=== PATIENT | female | born 1980 | race Caucasian/White ===

== ENCOUNTER 2020-12-05 21:14 | Emergency (ER) | payer OTHER ==
[~2020-12-05] VITALS: Ht 165.1 cm; Wt 50.0 kg
[2020-12-05] MEDS ORDERED: methylPREDNISolone 40 MG/ML (Solu-MEDROL) VIAL IV ONE (21:30)
[2020-12-05] MEDS ORDERED: EPINEPHrine INJECTION 1 MG/ML AMP IM ONE (21:30)
[2020-12-05] MEDS ORDERED: FAMOTIDINE 20MG/2ML IV (PEPCID) IVP ONE (21:30)
--- NOTE | 2020-12-05 21:56 | ED General ---
General Stated Complaint: HIVES,CP, STUNG BY WASP Source of Information: Patient Exam Limitations: No Limitations History of Present Illness Date Seen by Provider: Dec 05, 2020 Time Seen by Provider: 21:51 Initial Comments To ER with reports of diffuse hives, chest pain. She has a tightness in her chest and throat. No abdominal cramping or diarrhea. No shortness of breath she does however feel like her chest is tight. She was stung by several wasps at about 630 this evening. At about 815 she took 50 mg of Benadryl. She presents now because of failure to improve and concern of anaphylaxis given the skin and respiratory tract involvement. Her mother has a history of wasp induced anaphylaxis. She herself has never had an episode like this before. She is employed as a physician at [employer]. Timing/Duration: 1-2 Days Severity: Moderate Associated Systoms: Denies Symptoms Allergies and Home Medications Allergies Coded Allergies: No Known Drug Allergies (Unverified , 12/05/20) Patient Home Medication List Home Medication List Reviewed: Yes Review of Systems Review of Systems Constitutional: see HPI EENTM: see HPI Respiratory: no symptoms reported Cardiovascular: no symptoms reported Genitourinary: no symptoms reported Musculoskeletal: see HPI Skin: see HPI, pruritus Psychiatric/Neurological: No Symptoms Reported Hematologic/Lymphatic: No Symptoms Reported Physical Exam Vital Signs Capillary Refill : Height, Weight, BMI Height: '" Weight: lbs. oz. kg; BMI Method: General Appearance: No Apparent Distress, WD/WN, Other (No stridor or wheezing. Lungs are clear.) Eyes: Bilateral Eye Normal Inspection, Bilateral Eye PERRL, Bilateral Eye EOMI HEENT: PERRL/EOMI, TMs Normal Neck: Full Range of Motion, Normal Inspection Respiratory: No Accessory Muscle Use, No Respiratory Distress Cardiovascular: Regular Rate, Rhythm, Normal Peripheral Pulses, Other (Heart rate in the 80s sinus no ectopy) Gastrointestinal: Normal Bowel Sounds, Non Tender, Soft Neurologic/Psychiatric: Alert, Oriented x3 Skin: Normal Color, Warm/Dry, Other (Urticarial rash to the torso. Swelling and erythema about the sting site to the left ankle.) Progress/Results/Core Measures Suspected Sepsis SIRS Temperature: Pulse: Respiratory Rate: Blood Pressure / Mean: Results/Orders My Orders Orders - CHANNING ALMENDAREZ APRN Methylprednisolone Sod Succ (Solu-Medrol (12/05/20 21:30) Famotidine Injection (Pepcid Injection) (12/05/20 21:30) Epinephrine 1 Mg Injection (Adrenalin I (12/05/20 21:30) Ed Iv/Invasive Line Start (12/05/20 21:30) Vital Signs/I&O Capillary Refill : Departure Communication (Admissions) 2000-we did go ahead and give 0.3 mg of intramuscular epinephrine in the left deltoid muscle. We also gave 20 mg of IV Pepcid and 80 mg of IV Solu-Medrol. Impression Primary Impression: Anaphylaxis Disposition: HOME, SELF-CARE Condition: Stable Departure-Patient Inst. Decision time for Depature: 21:54 Referrals: [facility] [place] (PCP/Family) Primary Care Physician Patient Instructions: Anaphylaxis, Epinephrine Autoinjectors Scripts Epinephrine (Epipen 2-Rogelio) 0.3 Mg/0.3 Ml Auto.injct 0.3 MG IJ PRN PRN for anaphylaxis, #1 EA Prov: CHANNING ALMENDAREZ APRN 12/05/20 CHANNING ALMENDAREZ APRN Dec 05, 2020 21:56
[2020-12-05] MEDS ORDERED: EPIN0.3P3 IJ (21:57)
[2020-12-05 22:36] VITALS: BP 118/63
== END 2020-12-05 22:36 | disposition home or self-care (01) ==
LOC: ER 21:18
DX: T78.2XXA Anaphylactic shock, unspecified, initial encounter (principal); T63.461A Toxic effect of venom of wasps, accidental (unintentional), initial encounter
CPT/HCPCS: 93005